=== PATIENT | female | born 1990 | race Two or more races ===

== ENCOUNTER 2019-04-27 08:49 | Emergency (ER) | payer OTHER ==
[~2019-04-27] VITALS: Ht 157.5 cm; Wt 81.0 kg
--- NOTE | 2019-04-27 08:50 | NUR ---
L&D called for this pt who says is 30 weeks . Pt came in with no chief complaint, "just wanted to get checked out". L&D said to have pt come up after getting checked out in ER and clearing respiratory.
--- NOTE | 2019-04-27 09:30 | NUR ---
REPORT FROM [facility] SEE TRIAGE. PT CONTINUES TO HAVE NO COMPLAINT EXCEPT SLIGHT DRY THROAT. PT KEPT ON MONITOR, PULSE OX. CALL LIGHT WITHIN REACH.
--- NOTE | 2019-04-27 09:51 | NUR ---
PT DISCHARGED, WILL BE ESCORTED TO L&D FOR FURTHER MONITORING.
[2019-04-27 09:52] VITALS: BP 98/52
[2019-04-27] MEDS ORDERED: PREN1TAB10 PO (10:55)
== END 2019-04-27 09:58 | disposition home or self-care (01) ==
LOC: ED 09:52
DX: O9A.213 Injury, poisoning and certain other consequences of external causes complicating pregnancy, third trimester (principal); Z3A.30 30 weeks gestation of pregnancy; T65.891A Toxic effect of other specified substances, accidental (unintentional), initial encounter; R06.02 Shortness of breath; Y92.89 Other specified places as the place of occurrence of the external cause
CPT/HCPCS: 99283

== ENCOUNTER 2019-04-27 10:27 | Outpatient (CLI) | payer OTHER ==
[~2019-04-27] VITALS: Ht 157.5 cm; Wt 81.3 kg
[2019-04-27 10:43] VITALS: BP 95/59
[2019-04-27] MEDS ORDERED: PREN1TAB10 PO (10:55)
== END 2019-04-27 11:08 | disposition home or self-care (01) ==
LOC: LDOP 10:27
PROVIDERS: ATTEND Obstetrics & Gynecology
DX: O26.893 Other specified pregnancy related conditions, third trimester (principal); Z77.098 Contact with and (suspected) exposure to other hazardous, chiefly nonmedicinal, chemicals; Z3A.34 34 weeks gestation of pregnancy
CPT/HCPCS: 59025; 99201; G0463

== ENCOUNTER 2019-06-26 05:59 | Inpatient (IN) | payer BC, MEDICAID ==
[~2019-06-26] VITALS: Ht 157.5 cm; Wt 84.5 kg
[2019-06-28 07:30] VITALS: BP 116/76
== END 2019-06-28 17:20 | disposition home or self-care (01) | DRG 788 ==
LOC: LDIP 05:59 → 2NW 11:05
PROVIDERS: ADMIT Obstetrics & Gynecology; ATTEND Obstetrics & Gynecology
PROC: 10D00Z1 Extraction of Products of Conception, Low, Open Approach (ICD-10-PCS; principal; 2019-06-26)
PROC: 0DNU0ZZ Release Omentum, Open Approach (ICD-10-PCS; 2019-06-26)
DX: O34.211 Maternal care for low transverse scar from previous cesarean delivery (principal); K66.0 Peritoneal adhesions (postprocedural) (postinfection); O99.02 Anemia complicating childbirth; O99.62 Diseases of the digestive system complicating childbirth; D50.9 Iron deficiency anemia, unspecified; Z3A.39 39 weeks gestation of pregnancy; Z37.0 Single live birth; Z87.440 Personal history of urinary (tract) infections; Z64.1 Problems related to multiparity
CPT/HCPCS: 36415; 85025; 86850; 86900; G0378; J0171; J0690; J1885; J2274; J2405; J2370; J2590; J2765; J7120